=== PATIENT | male | born 2000 | race African-American/Black ===

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

== ENCOUNTER 2018-04-07 16:39 | Emergency (ER) | payer OTHER ==
[~2018-04-07] VITALS: Ht 172.7 cm; Wt 64.0 kg
[2018-04-07] MEDS ORDERED: MELATONIN10 M4 PO (17:05)
[2018-07-02] MEDS ORDERED: Tobrex Ophth S2.5 ML OPH (01:16)
== END 2018-04-07 17:16 | disposition home or self-care (01) ==
LOC: ED 16:39
DX: G56.22 Lesion of ulnar nerve, left upper limb (principal); G47.00 Insomnia, unspecified; K21.9 Gastro-esophageal reflux disease without esophagitis

== ENCOUNTER 2018-07-04 23:25 | Emergency (ER) | payer OTHER ==
[~2018-07-04] VITALS: Ht 172.7 cm; Wt 63.5 kg
[~2018-07-04 23:25] MED LIST changes: +MELATONIN10 M4 PO; +Tobrex Ophth S2.5 ML OPH
== END 2018-07-04 23:57 | disposition home or self-care (01) ==
LOC: ED 23:25
DX: S05.01XD Injury of conjunctiva and corneal abrasion without foreign body, right eye, subsequent encounter (principal); X58.XXXD Exposure to other specified factors, subsequent encounter

== ENCOUNTER 2021-04-01 00:42 | Emergency (ER) | payer OTHER ==
[~2021-04-01] VITALS: Wt 62.6 kg
== END 2021-04-01 03:22 | disposition home or self-care (01) ==
LOC: ED 00:42
DX: S29.019A Strain of muscle and tendon of unspecified wall of thorax, initial encounter (principal); K21.9 Gastro-esophageal reflux disease without esophagitis; V89.2XXA Person injured in unspecified motor-vehicle accident, traffic, initial encounter; Y93.89 Activity, other specified; Y92.89 Other specified places as the place of occurrence of the external cause; Y99.8 Other external cause status

== ENCOUNTER 2021-04-11 11:46 | Emergency (ER) | payer OTHER ==
[~2021-04-11] VITALS: Ht 172.7 cm; Wt 61.2 kg
[2021-04-11 12:18] LABS: BILIRUBIN Negative (Negative); BLOOD Negative (Negative); CLARITY Clear (Clear); COLOR Yellow (Yellow); GLUCOSE Negative (Negative); KETONE Negative (Negative); LEUKO ESTERASE Negative (Negative); NITRITE Negative (Negative); SPECIFIC GRAVITY >= 1.030 (1.001-1.030)
[2021-04-11 12:27] LABS: BACTERIA TRACE; EPITHELIAL CELLS 0-2; MUCOUS 2+; RBC 0-2 rbc/hpf (0-2)
== END 2021-04-11 12:15 | disposition home or self-care (01) ==
LOC: ED 11:46
PROVIDERS: Nurse Practitioner Family
DX: A64 Unspecified sexually transmitted disease (principal)

== ENCOUNTER 2021-08-17 20:42 | Emergency (ER) | payer OTHER ==
[~2021-08-17] VITALS: Ht 175.2 cm; Wt 61.2 kg
[2021-08-17] MEDS ORDERED: CEPHALEXIN500 M1 PO (21:10)
[2021-08-17] MEDS ORDERED: PREDNISONE20 M1 PO (21:10)
== END 2021-08-17 21:14 | disposition home or self-care (01) ==
LOC: ED 20:42
DX: T63.441A Toxic effect of venom of bees, accidental (unintentional), initial encounter (principal); Z91.030 Bee allergy status; Y92.89 Other specified places as the place of occurrence of the external cause

== ENCOUNTER 2024-10-20 20:30 | Emergency (ER) | payer SELFPAY ==
[~2024-10-20] VITALS: Ht 172.7 cm; Wt 56.7 kg
[~2024-10-20 20:30] MED LIST changes: +CEPHALEXIN500 M1 PO; +PREDNISONE20 M1 PO
[2024-10-20] MEDS ORDERED: Bacitracin Zinc 14 GM TUBE T ONE (20:50)
== END 2024-10-20 21:06 | disposition home or self-care (01) ==
LOC: ED 20:30
DX: L73.9 Follicular disorder, unspecified (principal); Z91.030 Bee allergy status; Z88.0 Allergy status to penicillin